=== PATIENT | male | born 1955 | race Caucasian/White ===

== ENCOUNTER 2017-11-11 07:24 | Emergency (ER) | payer OTHER ==
[~2017-11-11] VITALS: Ht 172.7 cm; Wt 81.7 kg
[~2017-11-11 07:24] MED LIST: NOHOMEMEDS
[2017-11-11 07:45] LABS: HEMATOCRIT 49.4 % (38.0-50.0); HEMOGLOBIN 16.5 G/DL (12.5-16.6); MCH 31.1 PG (29.0-34.0); MCHC 33.4 G/DL (30.0-36.0); MCV 93.2 FL (86-99); PLATELET COUNT 145 K/uL (156-360); RBC DIS.WIDTH-CV 13.1 % (11.8-14.6); WHITE BLOOD COUNT 10.2 K/uL (4.1-10.2)
[2017-11-11 07:55] LABS: ALBUMIN 4.6 g/dL (3.2-4.8); CHLORIDE 108 mEq/L (99-109); POTASSIUM 4.4 mEq/L (3.7-5.4); SODIUM 142 mEq/L (136-147)
[2017-11-11 07:58] LABS: GLUCOSE 113 mg/dL (70-99); TOTAL PROTEIN 7.2 g/dL (6.4-8.3)
[2017-11-11 08:00] LABS: TOTAL BILIRUBIN 0.8 mg/dL (0.0-1.0)
[2017-11-11 08:01] LABS: ALKALINE PHOSPHATASE 78 IU/L (3-129); CREATININE 8.5 mg/dL (0.6-1.3); GFR ESTIMATE (CALCULATED) 7 mL/min/ (58.99-99999)
[2017-11-11 08:02] LABS: UREA NITROGEN (BUN) 80 mg/dL (9-23)
[2017-11-11 08:03] LABS: AST (GOT) 21 IU/L (2-34)
[2017-11-11 08:04] LABS: ALT (GPT) 22 IU/L (3-49)
[2017-11-11 08:05] LABS: LIPASE 40 U/L (1.0-51.0)
[2017-11-11] MEDS ORDERED: ZOFRAN ODT4 MG PO (08:30)
[2017-11-11 09:36] VITALS: BP 142/97
[2017-11-11 11:04] LABS: ERTH.SED.RATE 21 MM/HR (0-20)
== END 2017-11-11 09:43 | disposition home or self-care (01) ==
LOC: EME → EDBD 07:24 → EME 09:43
PROVIDERS: Nurse Practitioner Family
DX: B34.9 Viral infection, unspecified (principal); R11.2 Nausea with vomiting, unspecified; R19.7 Diarrhea, unspecified; R51 Headache; N18.9 Chronic kidney disease, unspecified; Z99.2 Dependence on renal dialysis
CPT/HCPCS: 80053; 83690; 85027; 85651; 99281; 99285; J1200; J1885; J2765; J7030